=== PATIENT | female | born 1990 | race Two or more races ===

== ENCOUNTER 2024-06-20 19:10 | Emergency (ER) | payer OTHER ==
[~2024-06-20] VITALS: Ht 165.1 cm; Wt 122.5 kg
[2024-06-20] MEDS ORDERED: FLUT16SP16 BNOSTRILS (20:22)
[2024-06-20 20:35] VITALS: BP 161/94; TEMP 98.3; O2SAT 100
== END 2024-06-20 20:46 | disposition home or self-care (01) ==
LOC: ER 19:12
DX: J02.9 Acute pharyngitis, unspecified (principal); R09.82 Postnasal drip; E11.9 Type 2 diabetes mellitus without complications; I10 Essential (primary) hypertension